=== PATIENT | male | born 1965 | race Two or more races ===

== ENCOUNTER 2017-01-22 13:07 | Inpatient (IN) | payer MEDICARE, MEDICAID ==
[~2017-01-22] VITALS: Ht 188 cm; Wt 83.0 kg
[2017-01-22 17:28] VITALS: BP 133/87
[2017-01-22] MEDS ORDERED: ZOLPIDEM TARTRATE 5 MG TABLET PO PRN (17:30)
[2017-01-22] MEDS ORDERED: ACETAMINOPHEN 325 MG TABLET PO PRN (17:30)
[2017-01-22] MEDS ORDERED: MAGNESIUM HYDROXIDE 30 ML UDC PO PRN (17:30)
[2017-01-22] MEDS ORDERED: DIPH50CA4 PO (17:30)
[2017-01-22] MEDS ORDERED: DIVA500T54 PO (17:30)
[2017-01-22] MEDS ORDERED: QUET100T PO (17:30)
[2017-01-22] MEDS ORDERED: LORAZEPAM 0.5 MG TABLET PO PRN (17:30)
[2017-01-22] MEDS ORDERED: MAG HYDROX/AL HYDROX/SIMETH 30 ML UDC PO PRN (17:30)
[2017-01-22] MEDS ORDERED: RISP0.253 PO (17:30)
[2017-01-22] MEDS ORDERED: TRAZ-147 PO (17:30)
--- NOTE | 2017-01-22 18:03 | NUR ---
GPS RN NOTES/ ADMINISTERED ATIVAN 1 MG PO PRN PER PATIENT REQUEST PRESCRIBED, V/S TAKEN BP-133/87, P-67, CONTINUED MONITORING.
--- NOTE | 2017-01-22 18:57 | NUR ---
GPS RN ADMITTING NOTES: ADMITTED PATIENT FROM [facility] ER AT 1650. PATIENT IS ON 51 HOLD FOR GRAVE DISABILITY. PATIENT DENIES SI, ADMITS AH. UPON FACE TO FACE ASSESSMENT PATIENT IS A/OX3, EASILY AGITATED AND AGGRESSIVE. REFUSED SKIN ASSESSMENT, REFUSED TO SIGN ADMITTING PAPERS, PACING IN THE HALLWAY, HARD TO CONTROL BEHAVIOR. BELONGINGS CHECKED FOR CONTRABAND. DR. HUDDLESTON NOTIFIED, ADMITTING ORDERS RECEIVED AND CARRIED OUT. CONTINUE TO MONITOR THE PATIENT.
[2017-01-22 20:00] VITALS: BP 106/62
--- NOTE | 2017-01-23 07:15 | NUR ---
RN GPS NOTES PATIENT RESTING HIS BED, NO ACUTE DISTRESS NOTED ,NO CHANGES IN STATUS. ALL NEEDS ATTENDED ANTICIPATED . DENIES SI/HI AT THIS TIME, PT. COMPLY WITH DUE MEDS ,WILL ENDORSE TO NEXT SHIFT FOR CONTINUITY CARE
[2017-01-23] MEDS: NICOTINE PATCH (14MG) 14 MG PATCH.TD24 TD SCH (09:00)
[2017-01-23] MEDS ORDERED: TRAZODONE 50 MG TABLET PO PRN (12:00)
[2017-01-23] MEDS: DIVALPROEX SODIUM 500 MG TABLET.DR PO SCH ×2 (13:08→21:13)
[2017-01-23] MEDS: risperiDONE 1 MG TABLET PO SCH ×2 (13:08→16:43)
[2017-01-23 16:04] VITALS: BP 112/67
[2017-01-23 16:46] LABS: ALBUMIN 3.4 g/dL (3.4-5.0); BILIRUBIN,TOTAL 0.3 mg/dL (0.2-1.0); CALCIUM, SERUM 9.1 mg/dL (8.5-10.1); CREATININE 0.9 mg/dL (0.6-1.3); POTASSIUM 4.1 mmol/L (3.5-5.1); TOTAL PROTEIN, SERUM 6.1 g/dL (6.4-8.2)
[2017-01-23 16:48] LABS: CHOLESTEROL 134 mg/dL (<200); HDL CHOLESTEROL 37 mg/dL (40-60); LDL 77 mg/dL (0-99); TRIGLYCERIDES 119 mg/dL (30-150)
[2017-01-23 19:58] VITALS: BP 110/71
--- NOTE | 2017-01-23 20:00 | NUR ---
RN GPS NOTES PT. REFUSED WEEKLY SKIN REASSESSMENT, REFUSED TAKEN PICTURES ENCOURAGED , EXPLAINED RISKS AND BENEFITS STILL REFUSED .
[2017-01-23] MEDS: diphenhydrAMINE HCL 50 MG CAPSULE PO PRN (22:15)
[2017-01-24] MEDS: risperiDONE 1 MG TABLET PO SCH ×2 (08:05→17:29)
[2017-01-24] MEDS: DIVALPROEX SODIUM 500 MG TABLET.DR PO SCH ×2 (08:05→20:02)
[2017-01-24] MEDS: NICOTINE PATCH (14MG) 14 MG PATCH.TD24 TD SCH (08:06)
[2017-01-24 16:00] VITALS: BP 110/68
--- NOTE | 2017-01-24 19:20 | NUR ---
GPSRN PATIENT IN DAY ROOM, SITTING ON A CHAIR, APPEARS COMFORTABLE. NO NEEDS FOR NOW, ANSWERS QUESTIONS APPROPRIATELY. TO CONTINUE.
[2017-01-24] MEDS: diphenhydrAMINE HCL 50 MG CAPSULE PO PRN (20:02)
--- NOTE | 2017-01-24 20:05 | NUR ---
GPSRN REQUESTED TO HAVE HIS MEDICATIONS GIVEN EARLY. MEDS ADMINISTERED. WENT BACK TO HIS ROOM. BEHAVIOR ACCEPTABLE. COOPERATIVE. TO CONTINUE.
[2017-01-24 20:06] VITALS: BP 110/77
--- NOTE | 2017-01-24 23:15 | NUR ---
GPSRN WOKE UP , BRP VOIDED FREELY WENT BACK TO BED.
--- NOTE | 2017-01-25 02:25 | NUR ---
GPSRN WOKE UP, AMBULATE UP TO DOORWAY. NO NEEDS MADE. STATED WILL GO BACK TO SLEEP.
--- NOTE | 2017-01-25 06:47 | NUR ---
GPSRN SLEEP HOURS 10 HRS.
[2017-01-25 08:00] VITALS: BP 107/69
[2017-01-25] MEDS: risperiDONE 1 MG TABLET PO SCH ×2 (08:19→16:05)
[2017-01-25] MEDS: DIVALPROEX SODIUM 500 MG TABLET.DR PO SCH ×2 (08:19→20:06)
[2017-01-25] MEDS: NICOTINE PATCH (14MG) 14 MG PATCH.TD24 TD SCH (08:20)
--- NOTE | 2017-01-25 15:00 | NUR ---
Discharge Note: Per patient, he resides at a [facility] located at [address] [place] [address]. ([phone]). Patient stated that he would like to return to the board and care. dockworker attempted to contact patient's conservator Henry Jaime ([phone]) However, the number provided did not appear to work as it would not ring and social service liaison attempted three times. dockworker helped form a safe and proper discharge.
[2017-01-25 16:00] VITALS: BP 114/62
--- NOTE | 2017-01-25 17:56 | NUR ---
LJO-OT-GMBIV: GAVE MAALOX 30 ML PO DUE TO INDIGESTION AND WILL CONTINUE TO MONITOR FOR EFFECTIVENESS OF MEDICATION
[2017-01-25 20:01] VITALS: BP 147/79
[2017-01-25] MEDS: diphenhydrAMINE HCL 50 MG CAPSULE PO PRN (20:06)
[2017-01-26 08:00] VITALS: BP 128/68
[2017-01-26] MEDS: NICOTINE PATCH (14MG) 14 MG PATCH.TD24 TD SCH (09:38)
[2017-01-26] MEDS: risperiDONE 1 MG TABLET PO SCH ×2 (09:38→17:34)
[2017-01-26] MEDS: DIVALPROEX SODIUM 500 MG TABLET.DR PO SCH ×2 (09:38→21:43)
[2017-01-26 16:00] VITALS: BP 123/67
--- NOTE | 2017-01-26 19:30 | NUR ---
GPS RN NOTE, RECEIVED PATIENT AWAKE AND IN BED, NO S/S OR COMPLAINTS OF PAIN AT THIS TIME. PATIENT IS DISPLAYING NO S/S OF APPARENT DISTRESS AT THIS TIME. PATIENT BREATHING IS UNLABORED WITH EQUAL RISE AND FALL OF THE CHEST. PATIENT IS ALERT AND ORIENTED X 3 ON ROOM AIR WITH A SPO2 98%. PATIENT COMPLAINT WITH MEDICATION, ANXIOUS, COOPERATIVE AT TIMES, GUARDED, SUSPICIOUS, AND NEEDS REORIENTATION. PATIENT DENIES SUICIDE AND HOMICIDAL IDEATIONS AT THIS TIME. PATIENT ASSISTED WITH TURNING AND REPOSITIONING Q2HR AND PRN FOR COMFORT AND CIRCULATION. PATIENT HAS NO NEEDS AT THIS TIME. PATIENT EDUCATED ON THE USE OF THE CALL FERNÁNDEZ. PATIENT BED SIDE RAILS UP X2 FOR SAFETY, BED IS LOCKED AND LOW WILL CONTINUE TO MONITOR AND MAINTAIN SAFETY.
[2017-01-26] MEDS: diphenhydrAMINE HCL 50 MG CAPSULE PO PRN (20:21)
--- NOTE | 2017-01-26 20:21 | NUR ---
GPS RN NOTE, PATIENT HAS A COMPLAINT OF NOT BEING ABLE TO SLEEP AND WOULD LIKE A SLEEPING AID AT THIS TIME. PATIENT VITAL SIGNS ARE STABLE. GAVE BENADRYL 50MG PO HS ORDERED. WILL REASSESS FOR INSOMNIA AND I WILL CONTINUE TO MONITOR THIS PATIENT.
[2017-01-26 20:23] VITALS: BP 119/66
[2017-01-27 08:00] VITALS: BP 110/71
[2017-01-27] MEDS: DIVALPROEX SODIUM 500 MG TABLET.DR PO SCH ×2 (08:17→21:11)
[2017-01-27] MEDS: risperiDONE 1 MG TABLET PO SCH ×2 (08:17→17:02)
[2017-01-27] MEDS: NICOTINE PATCH (14MG) 14 MG PATCH.TD24 TD SCH (08:17)
--- NOTE | 2017-01-27 14:57 | NUR ---
quill worker faxed initial review packet to [facility] [place] [address] [place] [address] ([phone]). Per Sana, at the facility, patient has been accepted. quill worker will follow-up.
--- NOTE | 2017-01-27 15:05 | NUR ---
student worker spoke to Lianna from [facility] ([phone]) who stated that she would arrange transportation for patient. student worker will follow-up.
[2017-01-27 16:00] VITALS: BP 119/71
[2017-01-27] MEDS: NEOMY SULF/BACITRAC ZN/POLY 15 GM TUBE TP SCH (17:47)
[2017-01-27 20:00] VITALS: BP 124/71
[2017-01-27] MEDS: diphenhydrAMINE HCL 50 MG CAPSULE PO PRN (20:39)
[2017-01-28 08:00] VITALS: BP 112/64
[2017-01-28] MEDS: risperiDONE 1 MG TABLET PO SCH (08:09)
[2017-01-28] MEDS: NICOTINE PATCH (14MG) 14 MG PATCH.TD24 TD SCH ×2 (08:09→08:43)
[2017-01-28] MEDS: DIVALPROEX SODIUM 500 MG TABLET.DR PO SCH (08:09)
[2017-01-28] MEDS: NEOMY SULF/BACITRAC ZN/POLY 15 GM TUBE TP SCH (09:26)
--- NOTE | 2017-01-28 11:32 | NUR ---
DR. HUDDLESTON GAVE AN ORDER TO D/C HOLD AND D/C TO [facility]. PT. WITHOUT DISTRESS, DENIES SUICIDAL AND HOMICIDAL AND TO FOLLOW UP WITH PSYCH AND MEDICAL DOCTORS. THELMA ADAMS MADE AWARE OF THE DISCHARGE AND SAID OK FOR DISCHARGE AND TO CONTINUE SAME MEDS INCLUDING PRN. REPORT GIVEN TO PADMA KINGSLEY RN OVER THE FACILITY. PT. SIGNED THE DISCHARGE PAPERS. WILL CONTINUE TO MONITOR FOR SAFETY.
--- NOTE | 2017-01-28 11:45 | NUR ---
PT. LEFT THE UNIT WITH BELONGINGS AND PICKED BY [employer] FENG [employer]. LEFT WITHOUT DISTRESS, AMBULATORY AND ON STABLE CONDITION AND ESCORTED BY STAFF TO THE LOBBY. V/S TAKEN: BP 134/74, KY 81, RR 18, TEMP 98.0, AND OXYGEN SAT 97%. Addendum: 01/28/17 at 1150 by EDWARD GALLARDO RN WAS PICKED UP BY [facility].
--- NOTE | 2017-01-28 12:11 | NUR ---
Discharge Note: Patient was discharged to [facility] [address] [place] [address] ([phone]). Patient does not have any family to notify. Patient's was mood and affect were appropriate upon discharge. Patient denied any suicidal and homicidal ideations. Patient was agreeable with the discharge plan. Patient will follow-up with psychiatrist Dr. Norton ([phone]) at the facility. For smoking cessation patient was referred to [facility] in the main meeting room, located at [address] [place] [address] and has an appointment to attend the meeting on Tuesday01/29/17 at 9:00am. Facilitated info to IDT team who are in agreement with discharge arrangement. The multidisciplinary exitcare form was done, printed, signed, and given to the patient.
== END 2017-01-28 11:45 | DRG 885 ==
LOC: GPS 16:25
PROVIDERS: ADMIT Psychiatry & Neurology Psychiatry; ATTEND Psychiatry & Neurology Psychiatry
DX: F20.0 Paranoid schizophrenia (principal); F29 Unspecified psychosis not due to a substance or known physiological condition; R45.851 Suicidal ideations; F32.9 Major depressive disorder, single episode, unspecified; F41.9 Anxiety disorder, unspecified; Z73.6 Limitation of activities due to disability; Z79.899 Other long term (current) drug therapy; S40.812A Abrasion of left upper arm, initial encounter; X58.XXXA Exposure to other specified factors, initial encounter; Y92.9 Unspecified place or not applicable
CPT/HCPCS: 36415; 80053-TC; 80061-TC; 80164-TC; A6402; Q0163; Z7610